=== PATIENT | male | born 1940 | race Caucasian/White ===

== ENCOUNTER 2017-05-11 08:50 | Inpatient (IN) ==
[~2017-05-11 08:50] MED LIST: cefOXitin 1,000 MG in SYRINGE 1 EACH IV ONE
[2017-05-11] MEDS ORDERED: ALBUTEROL/IPRATROPIUM 3 ML NEB RESP TX ONE ×3 (09:53→15:30)
[2017-05-11 10:03] LABS: Basophils # 0.1 10*3/uL (0.0-0.2); Basophils % 0.7 % (0.0-0.8); Eosinophils # 0.2 10*3/uL (0.0-0.87); Hematocrit 34.3 VOL% (42.0-52.0); Hemoglobin 10.8 GM/DL (14.0-18.0); Immature Granulocytes % 0.7 %; Immature Granulocytes Absolute 0.05 #; Lymphocytes % 12.7 % (21.2-54.2); Mean Corpuscular HGB Conc 31.5 GM/DL (32-36); Mean Corpuscular Hemoglobin 27 PG (27-34); Mean Corpuscular Volume 84.5 FL (87-102); Mean Platelet Volume 9.1 FL (9.6-12.0); Monocytes # 0.6 10*3/uL (0.11-0.8); Monocytes % 7.4 % (1.7-12.7); Neutrophils # 5.8 10*3/uL (1.4-7.4); Neutrophils % 76.5 % (38.7-73.9); Platelet Count 155 T/CUMM (130-400); Red Blood Count 4.06 MC/CUMM (3.8-5.5); Red Cell Distribution Width 17.1 % (9.3-17.3); White Blood Count 7.6 T/CUMM (4-12)
[2017-05-11 10:10] LABS: PT Patient Result 10.1 SECS
[2017-05-11 10:25] LABS: Calcium 8.6 MG/DL (8.5-10.1); Osmolality,Calculated 283.3 MOS/KG (273-304); Potassium 4.8 MMOL/L (3.5-5.1)
[2017-05-11] MEDS ORDERED: LACTATED RINGERS 1,000 ML IV SCH (12:00)
[2017-05-11] MEDS ORDERED: FAMOTIDINE 20 MG TABLET PO ONE (12:09)
[2017-05-11] MEDS ORDERED: FAMOTIDINE 20 MG TABLET ONE (12:11)
[2017-05-11] MEDS ORDERED: BUPIVACAINE 0.25% 50 ML VIAL ONE (14:00)
[2017-05-11] MEDS ORDERED: ONDANSETRON 4 MG/2 ML VIAL IV PRN (14:45)
[2017-05-11] MEDS ORDERED: MORPHINE 2 MG/1 ML SYRINGE IV PRN (14:45)
[2017-05-11] MEDS ORDERED: ALBUTEROL/IPRATROPIUM 3 ML NEB RESP TX PRN (14:47)
[2017-05-11] MEDS ORDERED: SUGAMMADEX 200 MG/2 ML VIAL IV ONE (14:52)
[2017-05-11 15:07] LABS: Apearance,Urine Slightly Hazy (Clear); Bacteria,Urine Many /HPF (Few); Bilirubin,Urine Negative (Negative); Blood, Urine Small mg/dL (Negative); Glucose,Urine (UA) Negative (Negative); Ketones,Urine Negative (Negative); Mucus,Urine Occasional /LPF (Occasional); Nitrite,Urine Negative (Negative); Protein,Urine Negative; RBC,Urine 17 /HPF (0-4); Urine Color Yellow (Yellow); Urine Specific Gravity 1.011 (1.001-1.035); Urine Urobilinogen < 2.0 EU/DL (0.2-1.0); WBC,Urine 72 /HPF (0-6)
[2017-05-11] MEDS ORDERED: PROPOFOL 200 MG/20 ML VIAL IV ONE (15:19)
[2017-05-11] MEDS ORDERED: ACETAMINOPHEN 1,000 MG/100 ML VIAL IV ONE (15:20)
[2017-05-11] MEDS ORDERED: ROCURONIUM 100 MG/10 ML VIAL IV ONE (15:20)
[2017-05-11] MEDS ORDERED: SEVOFLURANE 1 UNIT/15 MINUTE INH ONE (15:20)
[2017-05-11] MEDS ORDERED: fentaNYL 100 MCG/2 ML VIAL ONE (15:20)
[2017-05-11] MEDS ORDERED: LACTATED RINGERS 1,000 ML IV ONE (15:20)
[2017-05-11] MEDS: CETIRIZINE 10 MG TABLET PO SCH (20:50)
[2017-05-11] MEDS: DEXTROSE 5% NACL 0.45% 1,000 ML IV SCH (20:55)
[2017-05-11] MEDS: ARFORMOTEROL 15 MCG/2 ML NEB RESP TX SCH (21:23)
[2017-05-12] MEDS: DEXTROSE 5% NACL 0.45% 1,000 ML IV SCH (04:52)
[2017-05-12] MEDS: ARFORMOTEROL 15 MCG/2 ML NEB RESP TX SCH ×2 (07:20→19:54)
[2017-05-12] MEDS: CETIRIZINE 10 MG TABLET PO SCH ×2 (09:35→20:20)
[2017-05-12] MEDS: ENOXAPARIN 40 MG/0.4 ML SYRINGE SUBCUT SCH (09:35)
[2017-05-12] MEDS: PANTOPRAZOLE 40 MG TABLET PO SCH (09:35)
[2017-05-12] MEDS: clonazePAM 0.5 MG TABLET PO SCH (09:36)
[2017-05-12] MEDS ORDERED: BUDESONIDE 0.5 MG/2 ML NEB RESP TX PRN (10:44)
[2017-05-12] MEDS: ALBUTEROL/IPRATROPIUM 3 ML NEB RESP TX SCH ×3 (11:20→19:54)
[2017-05-12] MEDS: CIPROFLOXACIN 500 MG TABLET PO SCH ×2 (11:53→20:20)
[2017-05-12] MEDS ORDERED: ALBUTEROL/IPRATROPIUM 3 ML NEB RESP TX SCH (13:00)
[2017-05-12] MEDS: ACYCLOVIR INJ 750 MG in SODIUM CHLORIDE 0.9% 250 ML IV SCH (18:59)
[2017-05-12] MEDS ORDERED: MELATONIN 3 MG TABLET PO SCH (21:00)
[2017-05-13] MEDS: ACYCLOVIR INJ 750 MG in SODIUM CHLORIDE 0.9% 250 ML IV SCH ×3 (03:07→11:40)
[2017-05-13 05:08] LABS: Basophils % 0.2 % (0.0-0.8); Eosinophils # 0.1 10*3/uL (0.0-0.87); Eosinophils % 2.7 % (0.00-10.9); Hematocrit 29.2 VOL% (42.0-52.0); Hemoglobin 9.2 GM/DL (14.0-18.0); Immature Granulocytes % 0.6 %; Immature Granulocytes Absolute 0.03 #; Lymphocytes # 0.5 10*3/uL (1.4-4.0); Lymphocytes % 10.3 % (21.2-54.2); Mean Corpuscular HGB Conc 31.5 GM/DL (32-36); Mean Corpuscular Hemoglobin 27 PG (27-34); Mean Corpuscular Volume 84.4 FL (87-102); Mean Platelet Volume 9.8 FL (9.6-12.0); Monocytes # 0.6 10*3/uL (0.11-0.8); Monocytes % 10.9 % (1.7-12.7); Neutrophils % 75.3 % (38.7-73.9); Platelet Count 112 T/CUMM (130-400); Red Blood Count 3.46 MC/CUMM (3.8-5.5); Red Cell Distribution Width 17.2 % (9.3-17.3); White Blood Count 5.3 T/CUMM (4-12)
[2017-05-13 05:43] LABS: Calcium 7.8 MG/DL (8.5-10.1); Osmolality,Calculated 283.1 MOS/KG (273-304); Potassium 4.2 MMOL/L (3.5-5.1)
[2017-05-13] MEDS: ARFORMOTEROL 15 MCG/2 ML NEB RESP TX SCH (07:50)
[2017-05-13] MEDS: ALBUTEROL/IPRATROPIUM 3 ML NEB RESP TX SCH ×2 (07:50→11:20)
[2017-05-13] MEDS: clonazePAM 0.5 MG TABLET PO SCH ×2 (09:32→09:45)
[2017-05-13] MEDS: ENOXAPARIN 40 MG/0.4 ML SYRINGE SUBCUT SCH ×2 (09:33→11:40)
[2017-05-13] MEDS: PANTOPRAZOLE 40 MG TABLET PO SCH (09:33)
[2017-05-13] MEDS: CIPROFLOXACIN 500 MG TABLET PO SCH (09:33)
[2017-05-13] MEDS: CETIRIZINE 10 MG TABLET PO SCH (09:33)
[2017-05-13 13:02] VITALS: BP 98/78
== END 2017-05-13 14:30 | disposition home health service (06) | DRG 330 ==
LOC: N.OR 08:50 → N.SDSINP 08:54 → N.3E 16:01 → N.CC 05-12 11:59
PROVIDERS: ADMIT Surgery; ATTEND Surgery

== ENCOUNTER 2019-02-22 16:38 | Inpatient (IN) ==
[2019-02-22] MEDS ORDERED: methylPREDNISolone SOD SUC 125 MG/2 ML VIAL IV STA (17:10)
[2019-02-22] MEDS ORDERED: SODIUM CHLORIDE 0.9% 500 ML IV STA (17:10)
[2019-02-22] MEDS ORDERED: ONDANSETRON 4 MG/2 ML VIAL IV STA (17:10)
[2019-02-22 17:22] LABS: Basophils % 0.1 % (0.0-0.8); Hematocrit 32.2 VOL% (42.0-52.0); Hemoglobin 10.2 GM/DL (14.0-18.0); Immature Granulocytes % 0.6 %; Immature Granulocytes Absolute 0.05 #; Lymphocytes # 0.8 10*3/uL (1.4-4.0); Lymphocytes % 9.4 % (21.2-54.2); Mean Corpuscular HGB Conc 31.7 GM/DL (32-36); Mean Corpuscular Volume 89.2 FL (87-102); Mean Platelet Volume 8.3 FL (9.6-12.0); Monocytes % 1.6 % (1.7-12.7); Neutrophils % 88.3 % (38.7-73.9); Platelet Count 224 T/CUMM (130-400); Red Blood Count 3.61 MC/CUMM (3.8-5.5); Red Cell Distribution Width 16.6 % (9.3-17.3); White Blood Count 8.3 T/CUMM (4-12)
[2019-02-22 17:29] LABS: ABG Base Excess 1.8 MMOL/L (-2.5-2.5); ABG HCO3 25.9 MMOL/L (20-26); ABG Oxygen Saturation 91.7 % (95-100); ABG PCO2 36.1 MM HG (35-48); ABG PH 7.456 (7.35-7.45); ABG PO2 63.4 MM HG (80-95); ABG TCO2 22.9 MMOL/L (23-27)
[2019-02-22 17:30] LABS: INR 1.1; PT Patient Result 11.6 SECS (9.6-12.2)
[2019-02-22] MEDS ORDERED: ALBUTEROL NEB SOLN 5 MG/ML 20 ML/BOTTLE RESP TX SCH (17:30)
[2019-02-22 17:32] LABS: Albumin 2.3 G/DL (3.4-5.0); Bilirubin,Total 0.4 MG/DL (0.2-1.0); Calcium 8.5 MG/DL (8.5-10.1); Osmolality,Calculated 292.6 MOS/KG (273-304); Total Protein 5.4 G/DL (6.4-8.3)
[2019-02-22] MEDS ORDERED: SODIUM CHLORIDE 0.9% 1,900 ML IV ONE (18:06)
[2019-02-22] MEDS ORDERED: LEVOFLOXACIN INJ 750 MG in PREMIX 1 EACH IV STA (18:07)
[2019-02-22] MEDS ORDERED: ONDANSETRON 4 MG/2 ML VIAL IV PRN (18:20)
[2019-02-22] MEDS ORDERED: ACETAMINOPHEN 325 MG TABLET PO PRN (18:20)
[2019-02-22 18:39] LABS: Band Neutrophils 5 % (0-10); Lymphocytes 9 % (20-55); Metamyelocytes 4 %; Segmented Neutrophils 82 % (50-85); Total Cells Counted 100
[2019-02-22 18:40] LABS: Hypochromasia 1+; Platelet Estimate Normal
[2019-02-22 18:41] LABS: Polychromasia 1+
[2019-02-22 18:42] LABS: Anisocytosis 2+; Ovalocytes 1+; Poikilocytosis 1+; Schistocytes Few
[2019-02-22 19:03] LABS: INR 1.1; PT Patient Result 11.6 SECS (9.6-12.2); Partial Thromboplastin Time 23.5 SECS (20.8-36.0)
[2019-02-22 19:10] LABS: Apearance,Urine CLEAR (Clear); Bilirubin,Urine Negative (Negative); Blood, Urine Negative (Negative); Glucose,Urine (UA) Negative (Negative); Ketones,Urine Negative (Negative); Mucus,Urine Occasional /LPF (Occasional); Nitrite,Urine Negative (Negative); Protein,Urine Negative; RBC,Urine 8 /HPF (0-4); Squamous Epithelial Cell,Urine Occasional /HPF (0-10); Urine Color Yellow (Yellow); Urine Specific Gravity 1.015 (1.001-1.035); WBC,Urine <1 /HPF (0-6)
[2019-02-22] MEDS ORDERED: IPRATROPIUM/ALBUTEROL INHALER INH SCH (21:00)
[2019-02-22] MEDS ORDERED: BUDESONIDE 0.5 MG/2 ML NEB RESP TX SCH (21:00)
[2019-02-22] MEDS: MELATONIN 3 MG TABLET PO SCH (21:58)
[2019-02-22] MEDS: ENOXAPARIN 40 MG/0.4 ML SYRINGE SUBCUT SCH (21:58)
[2019-02-22] MEDS: MONTELUKAST 10 MG TABLET PO SCH (21:58)
[2019-02-22] MEDS: clonazePAM 0.5 MG TABLET PO SCH (21:58)
[2019-02-22] MEDS: VANCOMYCIN INJ 1,000 MG in SODIUM CHLORIDE 0.9% 250 ML IV SCH (22:00)
[2019-02-22] MEDS: traZODone 50 MG TABLET PO SCH (22:01)
[2019-02-22] MEDS: ARFORMOTEROL 15 MCG/2 ML NEB RESP TX SCH (23:23)
[2019-02-22] MEDS: ALBUTEROL/IPRATROPIUM 3 ML NEB RESP TX SCH (23:23)
[2019-02-23 05:00] LABS: Basophils % 0.1 % (0.0-0.8); Hematocrit 27.8 VOL% (42.0-52.0); Hemoglobin 8.8 GM/DL (14.0-18.0); Immature Granulocytes % 0.3 %; Immature Granulocytes Absolute 0.02 #; Lymphocytes # 0.2 10*3/uL (1.4-4.0); Lymphocytes % 3.1 % (21.2-54.2); Mean Corpuscular HGB Conc 31.7 GM/DL (32-36); Mean Corpuscular Volume 87.7 FL (87-102); Mean Platelet Volume 9.7 FL (9.6-12.0); Monocytes % 0.6 % (1.7-12.7); Neutrophils % 95.9 % (38.7-73.9); Platelet Count 180 T/CUMM (130-400); Red Blood Count 3.17 MC/CUMM (3.8-5.5); Red Cell Distribution Width 16.6 % (9.3-17.3); White Blood Count 6.7 T/CUMM (4-12)
[2019-02-23 05:30] LABS: Anisocytosis 1+; Band Neutrophils 6 % (0-10); Hypochromasia 1+; Lymphocytes 4 % (20-55); Microcytosis 1+; Ovalocytes Slight; Segmented Neutrophils 89 % (50-85); Total Cells Counted 100
[2019-02-23 05:31] LABS: Platelet Estimate Adequate
[2019-02-23 05:35] LABS: Albumin 2.1 G/DL (3.4-5.0); Bilirubin,Total 0.5 MG/DL (0.2-1.0); Calcium 8.8 MG/DL (8.5-10.1); Osmolality,Calculated 296.6 MOS/KG (273-304); Total Protein 5.8 G/DL (6.4-8.3)
[2019-02-23] MEDS: ALBUTEROL/IPRATROPIUM 3 ML NEB RESP TX SCH ×3 (07:40→19:38)
[2019-02-23] MEDS: ARFORMOTEROL 15 MCG/2 ML NEB RESP TX SCH ×2 (07:40→19:38)
[2019-02-23] MEDS: BUDESONIDE 0.5 MG/2 ML NEB RESP TX SCH ×2 (07:40→19:38)
[2019-02-23] MEDS: VANCOMYCIN INJ 1,000 MG in SODIUM CHLORIDE 0.9% 250 ML IV SCH ×2 (09:07→21:02)
[2019-02-23] MEDS: PANTOPRAZOLE 40 MG TABLET PO SCH (09:08)
[2019-02-23] MEDS: MULTIVITAMIN (CENTRUM) TABLET PO SCH (09:08)
[2019-02-23] MEDS: CETIRIZINE 10 MG TABLET PO SCH (09:08)
[2019-02-23] MEDS: clonazePAM 0.5 MG TABLET PO SCH (21:01)
[2019-02-23] MEDS: traZODone 50 MG TABLET PO SCH (21:01)
[2019-02-23] MEDS: ENOXAPARIN 40 MG/0.4 ML SYRINGE SUBCUT SCH (21:01)
[2019-02-23] MEDS: MELATONIN 3 MG TABLET PO SCH (21:01)
[2019-02-23] MEDS: MONTELUKAST 10 MG TABLET PO SCH (21:13)
[2019-02-23] MEDS: LEVOFLOXACIN INJ 750 MG in PREMIX 1 EACH IV SCH (22:27)
[2019-02-24] MEDS: ALBUTEROL/IPRATROPIUM 3 ML NEB RESP TX SCH ×4 (00:33→20:17)
[2019-02-24] MEDS: BUDESONIDE 0.5 MG/2 ML NEB RESP TX SCH ×2 (07:32→20:17)
[2019-02-24] MEDS: ARFORMOTEROL 15 MCG/2 ML NEB RESP TX SCH ×2 (07:32→20:17)
[2019-02-24] MEDS: MULTIVITAMIN (CENTRUM) TABLET PO SCH (08:34)
[2019-02-24] MEDS: VANCOMYCIN INJ 1,000 MG in SODIUM CHLORIDE 0.9% 250 ML IV SCH ×2 (08:34→20:34)
[2019-02-24] MEDS: CETIRIZINE 10 MG TABLET PO SCH (08:34)
[2019-02-24] MEDS: PANTOPRAZOLE 40 MG TABLET PO SCH (08:34)
[2019-02-24] MEDS: CHOLECALCIFEROL 1,000 UNIT TABLET PO SCH (11:45)
[2019-02-24] MEDS: CEFEPIME 1,000 MG in SODIUM CHLORIDE 0.9% 100 ML IV SCH ×3 (12:49→23:30)
[2019-02-24] MEDS: SODIUM CHLORIDE 0.45% 1,000 ML IV SCH (12:49)
[2019-02-24] MEDS: DORNASE ALFA 2.5 MG/2.5 ML VIAL RESP TX SCH ×2 (13:19→20:17)
[2019-02-24] MEDS: traZODone 50 MG TABLET PO SCH (20:34)
[2019-02-24] MEDS: ENOXAPARIN 40 MG/0.4 ML SYRINGE SUBCUT SCH (20:34)
[2019-02-24] MEDS: clonazePAM 0.5 MG TABLET PO SCH (20:34)
[2019-02-24] MEDS: MONTELUKAST 10 MG TABLET PO SCH (20:34)
[2019-02-24] MEDS: MELATONIN 3 MG TABLET PO SCH (20:34)
[2019-02-24] MEDS: LEVOFLOXACIN INJ 750 MG in PREMIX 1 EACH IV SCH (21:42)
[2019-02-25] MEDS: ALBUTEROL/IPRATROPIUM 3 ML NEB RESP TX SCH ×4 (00:53→19:16)
[2019-02-25] MEDS: CEFEPIME 1,000 MG in SODIUM CHLORIDE 0.9% 100 ML IV SCH ×4 (05:10→23:36)
[2019-02-25 05:14] LABS: Hematocrit 26.7 VOL% (42.0-52.0); Hemoglobin 8.5 GM/DL (14.0-18.0); Immature Granulocytes % 1.1 %; Immature Granulocytes Absolute 0.05 #; Lymphocytes # 0.5 10*3/uL (1.4-4.0); Lymphocytes % 10.9 % (21.2-54.2); Mean Corpuscular HGB Conc 31.8 GM/DL (32-36); Mean Corpuscular Volume 87.3 FL (87-102); Mean Platelet Volume 9.5 FL (9.6-12.0); Monocytes % 1.5 % (1.7-12.7); Neutrophils % 86.5 % (38.7-73.9); Platelet Count 152 T/CUMM (130-400); Red Blood Count 3.06 MC/CUMM (3.8-5.5); Red Cell Distribution Width 16.1 % (9.3-17.3); White Blood Count 4.7 T/CUMM (4-12)
[2019-02-25 05:44] LABS: Calcium 8.6 MG/DL (8.5-10.1); Osmolality,Calculated 282.4 MOS/KG (273-304)
[2019-02-25] MEDS: BUDESONIDE 0.5 MG/2 ML NEB RESP TX SCH ×2 (07:19→19:17)
[2019-02-25] MEDS: ARFORMOTEROL 15 MCG/2 ML NEB RESP TX SCH ×2 (07:19→19:16)
[2019-02-25] MEDS: DORNASE ALFA 2.5 MG/2.5 ML VIAL RESP TX SCH ×2 (07:20→19:17)
[2019-02-25] MEDS ORDERED: POTASSIUM CHLORIDE 20 MEQ TABLET PO ONE (07:56)
[2019-02-25] MEDS: VANCOMYCIN INJ 1,000 MG in SODIUM CHLORIDE 0.9% 250 ML IV SCH ×2 (08:45→20:14)
[2019-02-25] MEDS: PANTOPRAZOLE 40 MG TABLET PO SCH (08:46)
[2019-02-25] MEDS: CHOLECALCIFEROL 1,000 UNIT TABLET PO SCH (08:46)
[2019-02-25] MEDS: CETIRIZINE 10 MG TABLET PO SCH (08:46)
[2019-02-25] MEDS: SODIUM CHLORIDE 0.45% 1,000 ML IV SCH (08:46)
[2019-02-25] MEDS: MULTIVITAMIN (CENTRUM) TABLET PO SCH (08:46)
[2019-02-25] MEDS: clonazePAM 0.5 MG TABLET PO SCH (20:07)
[2019-02-25] MEDS: MELATONIN 3 MG TABLET PO SCH (20:07)
[2019-02-25] MEDS: traZODone 50 MG TABLET PO SCH (20:07)
[2019-02-25] MEDS: MONTELUKAST 10 MG TABLET PO SCH (20:08)
[2019-02-25] MEDS: ENOXAPARIN 40 MG/0.4 ML SYRINGE SUBCUT SCH (20:08)
[2019-02-25] MEDS: LEVOFLOXACIN INJ 750 MG in PREMIX 1 EACH IV SCH (21:54)
[2019-02-26] MEDS: ALBUTEROL/IPRATROPIUM 3 ML NEB RESP TX SCH ×4 (01:24→19:58)
[2019-02-26 05:23] LABS: Eosinophils % 0.5 % (0.00-10.9); Hematocrit 25.9 VOL% (42.0-52.0); Hemoglobin 8.2 GM/DL (14.0-18.0); Immature Granulocytes Absolute 0.04 #; Lymphocytes # 0.6 10*3/uL (1.4-4.0); Lymphocytes % 14.4 % (21.2-54.2); Mean Corpuscular HGB Conc 31.7 GM/DL (32-36); Mean Corpuscular Volume 88.7 FL (87-102); Mean Platelet Volume 9.3 FL (9.6-12.0); Monocytes % 2.1 % (1.7-12.7); Platelet Count 147 T/CUMM (130-400); Red Blood Count 2.92 MC/CUMM (3.8-5.5); White Blood Count 3.8 T/CUMM (4-12)
[2019-02-26] MEDS: SODIUM CHLORIDE 0.45% 1,000 ML IV SCH ×2 (05:27→17:54)
[2019-02-26] MEDS: CEFEPIME 1,000 MG in SODIUM CHLORIDE 0.9% 100 ML IV SCH ×3 (05:27→17:50)
[2019-02-26 05:55] LABS: Microcytosis 1+; Platelet Estimate Normal
[2019-02-26 05:56] LABS: Anisocytosis Slight; Hypochromasia Slight; Ovalocytes 1+
[2019-02-26 05:57] LABS: Schistocytes Slight
[2019-02-26 06:01] LABS: Calcium 8.2 MG/DL (8.5-10.1); Osmolality,Calculated 279.5 MOS/KG (273-304)
[2019-02-26 06:07] LABS: % Iron Saturation 20.3 % (18-50); Ferritin 196.7 ng/ml (26-388)
[2019-02-26 06:13] LABS: Folate > 24.0 NG/ML (5.4-24.0); Vitamin B12 434 PG/ML (211-911)
[2019-02-26 06:23] LABS: Sedimentation Rate-Westergren 126 MM/HR (0-20)
[2019-02-26] MEDS: ARFORMOTEROL 15 MCG/2 ML NEB RESP TX SCH ×2 (07:36→19:58)
[2019-02-26] MEDS: DORNASE ALFA 2.5 MG/2.5 ML VIAL RESP TX SCH ×2 (07:37→20:14)
[2019-02-26] MEDS: BUDESONIDE 0.5 MG/2 ML NEB RESP TX SCH ×2 (07:37→20:08)
[2019-02-26] MEDS: CHOLECALCIFEROL 1,000 UNIT TABLET PO SCH (08:13)
[2019-02-26] MEDS: POTASSIUM CHLORIDE 20 MEQ TABLET PO SCH (08:14)
[2019-02-26] MEDS: VANCOMYCIN INJ 1,000 MG in SODIUM CHLORIDE 0.9% 250 ML IV SCH (08:14)
[2019-02-26] MEDS: MULTIVITAMIN (CENTRUM) TABLET PO SCH (08:14)
[2019-02-26] MEDS: PANTOPRAZOLE 40 MG TABLET PO SCH (08:14)
[2019-02-26] MEDS: CETIRIZINE 10 MG TABLET PO SCH (08:14)
[2019-02-26 08:48] LABS: Hemoglobin A1 (Alkaline) 97.2 % (96.5-98.5); Hemoglobin A2 (Alkaline) 2.8 % (1.5-3.5)
[2019-02-26] MEDS: clonazePAM 0.5 MG TABLET PO SCH (21:31)
[2019-02-26] MEDS: traZODone 50 MG TABLET PO SCH (21:31)
[2019-02-26] MEDS: MELATONIN 3 MG TABLET PO SCH (21:32)
[2019-02-26] MEDS: MONTELUKAST 10 MG TABLET PO SCH (21:32)
[2019-02-26] MEDS: LEVOFLOXACIN INJ 750 MG in PREMIX 1 EACH IV SCH (21:32)
[2019-02-26] MEDS: ENOXAPARIN 40 MG/0.4 ML SYRINGE SUBCUT SCH (22:23)
[2019-02-27] MEDS: CEFEPIME 1,000 MG in SODIUM CHLORIDE 0.9% 100 ML IV SCH ×4 (00:41→17:46)
[2019-02-27] MEDS: ALBUTEROL/IPRATROPIUM 3 ML NEB RESP TX SCH ×4 (02:21→19:20)
[2019-02-27 06:07] LABS: Basophils % 0.2 % (0.0-0.8); Eosinophils # 0.1 10*3/uL (0.0-0.87); Eosinophils % 1.5 % (0.00-10.9); Hematocrit 24.2 VOL% (42.0-52.0); Hemoglobin 7.6 GM/DL (14.0-18.0); Immature Granulocytes % 3.2 %; Immature Granulocytes Absolute 0.19 #; Lymphocytes # 0.6 10*3/uL (1.4-4.0); Lymphocytes % 9.3 % (21.2-54.2); Mean Corpuscular HGB Conc 31.4 GM/DL (32-36); Mean Corpuscular Volume 88.6 FL (87-102); Mean Platelet Volume 9.3 FL (9.6-12.0); Monocytes % 2.8 % (1.7-12.7); Platelet Count 130 T/CUMM (130-400); Red Blood Count 2.73 MC/CUMM (3.8-5.5); Red Cell Distribution Width 15.8 % (9.3-17.3)
[2019-02-27 06:48] LABS: Albumin 1.8 G/DL (3.4-5.0); Bilirubin,Total 1.3 MG/DL (0.2-1.0); Calcium 7.8 MG/DL (8.5-10.1); Osmolality,Calculated 279.5 MOS/KG (273-304); Total Protein 5.3 G/DL (6.4-8.3)
[2019-02-27] MEDS ORDERED: SODIUM CHLORIDE 0.9% 1,000 ML IV PRN ×2 (06:56→07:29)
[2019-02-27] MEDS: ARFORMOTEROL 15 MCG/2 ML NEB RESP TX SCH ×2 (07:10→19:20)
[2019-02-27] MEDS: BUDESONIDE 0.5 MG/2 ML NEB RESP TX SCH ×2 (07:10→19:20)
[2019-02-27] MEDS: DORNASE ALFA 2.5 MG/2.5 ML VIAL RESP TX SCH ×2 (07:10→19:20)
[2019-02-27] MEDS: CHOLECALCIFEROL 1,000 UNIT TABLET PO SCH (08:18)
[2019-02-27] MEDS: POTASSIUM CHLORIDE 20 MEQ TABLET PO SCH ×2 (08:18→08:21)
[2019-02-27] MEDS: MULTIVITAMIN (CENTRUM) TABLET PO SCH (08:18)
[2019-02-27] MEDS: PANTOPRAZOLE 40 MG TABLET PO SCH (08:18)
[2019-02-27] MEDS: CETIRIZINE 10 MG TABLET PO SCH (08:18)
[2019-02-27] MEDS ORDERED: NICOTINE 21 MG/24 HR PATCH TRANSDERM SCH (09:00)
[2019-02-27] MEDS ORDERED: BISACODYL 10 MG SUPP RECTAL ONE (14:40)
[2019-02-27] MEDS ORDERED: MAGNESIUM HYDROXIDE SUSP 30 ML UDCUP PO ONE (14:40)
[2019-02-27] MEDS ORDERED: POLYETHYLENE GLYCOL POWDER 17 GM PACK PO ONE (14:41)
[2019-02-27] MEDS ORDERED: LEVOFLOXACIN 500 MG TABLET PO ONE (14:42)
[2019-02-27 16:17] LABS: Hematocrit 30.5 VOL% (42.0-52.0); Hemoglobin 9.9 GM/DL (14.0-18.0)
[2019-02-27] MEDS: ENOXAPARIN 40 MG/0.4 ML SYRINGE SUBCUT SCH (20:14)
[2019-02-27] MEDS: clonazePAM 0.5 MG TABLET PO SCH (20:16)
[2019-02-27] MEDS: MELATONIN 3 MG TABLET PO SCH (20:16)
[2019-02-27] MEDS: traZODone 50 MG TABLET PO SCH (20:16)
[2019-02-27] MEDS: LEVOFLOXACIN INJ 750 MG in PREMIX 1 EACH IV SCH (20:17)
[2019-02-27] MEDS: MONTELUKAST 10 MG TABLET PO SCH (20:24)
[2019-02-28] MEDS: ALBUTEROL/IPRATROPIUM 3 ML NEB RESP TX SCH ×2 (00:10→07:58)
[2019-02-28] MEDS: CEFEPIME 1,000 MG in SODIUM CHLORIDE 0.9% 100 ML IV SCH ×2 (00:37→05:40)
[2019-02-28] MEDS: BUDESONIDE 0.5 MG/2 ML NEB RESP TX SCH (08:03)
[2019-02-28] MEDS: ARFORMOTEROL 15 MCG/2 ML NEB RESP TX SCH (08:03)
[2019-02-28] MEDS: DORNASE ALFA 2.5 MG/2.5 ML VIAL RESP TX SCH (08:03)
[2019-02-28 08:26] VITALS: BP 104/54
== END 2019-02-28 08:19 | disposition swing bed (61) | DRG 194 ==
LOC: EDUNIT# → EDBD → N.ED 16:38 → N.EDINP 18:20 → N.4E 19:09
PROVIDERS: ADMIT Hospitalist; ATTEND Hospitalist

== ENCOUNTER 2019-03-26 17:50 | Inpatient (IN) ==
[2019-03-26 18:34] LABS: Basophils # 0.1 10*3/uL (0.0-0.2); Basophils % 0.3 % (0.0-0.8); Eosinophils # 0.1 10*3/uL (0.0-0.87); Eosinophils % 0.3 % (0.00-10.9); Hematocrit 40.8 VOL% (42.0-52.0); Hemoglobin 12.9 GM/DL (14.0-18.0); Immature Granulocytes % 2.2 %; Lymphocytes # 1.1 10*3/uL (1.4-4.0); Lymphocytes % 4.1 % (21.2-54.2); Mean Corpuscular HGB Conc 31.6 GM/DL (32-36); Mean Corpuscular Volume 93.4 FL (87-102); Mean Platelet Volume 9.1 FL (9.6-12.0); Monocytes % 5.7 % (1.7-12.7); Neutrophils % 87.4 % (38.7-73.9); Platelet Count 316 T/CUMM (130-400); Red Blood Count 4.37 MC/CUMM (3.8-5.5); Red Cell Distribution Width 19.1 % (9.3-17.3); White Blood Count 27.2 T/CUMM (4-12)
[2019-03-26 18:41] LABS: PT Patient Result 10.7 SECS (9.6-12.2); Partial Thromboplastin Time 25.7 SECS (20.8-36.0)
[2019-03-26 18:50] LABS: Albumin 3.5 G/DL (3.4-5.0); Bilirubin,Total 0.6 MG/DL (0.2-1.0); Calcium 8.8 MG/DL (8.5-10.1); Osmolality,Calculated 282.5 MOS/KG (273-304); Total Protein 7.8 G/DL (6.4-8.3)
[2019-03-26 18:53] LABS: Lymphocytes 3 % (20-55); Segmented Neutrophils 92 % (50-85); Total Cells Counted 100
[2019-03-26 18:54] LABS: Hypochromasia Slight; Microcytosis Slight; Ovalocytes Few; Platelet Estimate Normal
[2019-03-26 18:55] LABS: Tear Drop Cells Few
[2019-03-26] MEDS ORDERED: LEVOFLOXACIN INJ 750 MG in PREMIX 1 EACH IV STA (20:46)
[2019-03-26 21:44] LABS: Apearance,Urine CLEAR (Clear); Bilirubin,Urine Negative (Negative); Blood, Urine Negative (Negative); Glucose,Urine (UA) Negative (Negative); Ketones,Urine Negative (Negative); Mucus,Urine Occasional /LPF (Occasional); Nitrite,Urine Negative (Negative); Protein,Urine Negative; RBC,Urine 1 /HPF (0-4); Urine Color Yellow (Yellow); Urine Specific Gravity 1.038 (1.001-1.035); Urine Urobilinogen < 2.0 EU/DL (0.2-1.0); WBC,Urine <1 /HPF (0-6)
[2019-03-26] MEDS ORDERED: traZODone 50 MG TABLET PO PRN (23:09)
[2019-03-26] MEDS ORDERED: ENOXAPARIN 80 MG/0.8 ML SYRINGE SUBCUT SCH (23:09)
[2019-03-27] MEDS: MEROPENEM 500 MG in SODIUM CHLORIDE 0.9% 100 ML IV SCH ×4 (00:33→19:10)
[2019-03-27] MEDS: ARFORMOTEROL 15 MCG/2 ML NEB RESP TX SCH ×3 (00:38→20:14)
[2019-03-27] MEDS: BUDESONIDE 0.5 MG/2 ML NEB RESP TX SCH ×3 (00:38→20:14)
[2019-03-27] MEDS: ALBUTEROL/IPRATROPIUM 3 ML NEB RESP TX SCH ×6 (00:38→20:14)
[2019-03-27] MEDS ORDERED: VANCOMYCIN INJ 1,000 MG in SODIUM CHLORIDE 0.9% 250 ML IV SCH (01:00)
[2019-03-27 03:50] LABS: Basophils % 0.1 % (0.0-0.8); Eosinophils # 0.1 10*3/uL (0.0-0.87); Eosinophils % 0.5 % (0.00-10.9); Hematocrit 31.7 VOL% (42.0-52.0); Hemoglobin 10.1 GM/DL (14.0-18.0); Immature Granulocytes % 0.9 %; Immature Granulocytes Absolute 0.13 #; Lymphocytes # 0.8 10*3/uL (1.4-4.0); Lymphocytes % 5.4 % (21.2-54.2); Mean Corpuscular HGB Conc 31.9 GM/DL (32-36); Mean Platelet Volume 9.6 FL (9.6-12.0); Monocytes % 5.3 % (1.7-12.7); Neutrophils % 87.8 % (38.7-73.9); Platelet Count 171 T/CUMM (130-400); Red Blood Count 3.41 MC/CUMM (3.8-5.5); Red Cell Distribution Width 18.6 % (9.3-17.3); White Blood Count 14.7 T/CUMM (4-12)
[2019-03-27] MEDS ORDERED: MAGNESIUM SULF RIDER 4 GM in PREMIX 1 EACH IV PRN (06:56)
[2019-03-27] MEDS ORDERED: MAGNESIUM SULF RIDER 2 GM in PREMIX 1 EACH IV PRN (06:56)
[2019-03-27] MEDS ORDERED: POTASSIUM CHLORIDE RIDER 10 MEQ in PREMIX 1 EACH IV PRN (06:56)
[2019-03-27] MEDS: FUROSEMIDE 20 MG TABLET PO SCH ×2 (09:28→21:14)
[2019-03-27] MEDS: CETIRIZINE 10 MG TABLET PO SCH (09:28)
[2019-03-27] MEDS: PANTOPRAZOLE 40 MG TABLET PO SCH (09:28)
[2019-03-27] MEDS: APIXABAN 5 MG TABLET PO SCH ×2 (12:36→21:14)
[2019-03-27] MEDS: clonazePAM 0.5 MG TABLET PO SCH (21:14)
[2019-03-27] MEDS: MELATONIN 3 MG TABLET PO SCH (21:14)
[2019-03-27] MEDS: traZODone 50 MG TABLET PO SCH (21:18)
[2019-03-27] MEDS: LEVOFLOXACIN INJ 750 MG in PREMIX 1 EACH IV SCH (22:38)
[2019-03-28] MEDS: ALBUTEROL/IPRATROPIUM 3 ML NEB RESP TX SCH ×7 (00:04→23:28)
[2019-03-28] MEDS: MEROPENEM 500 MG in SODIUM CHLORIDE 0.9% 100 ML IV SCH ×4 (00:45→19:31)
[2019-03-28 06:58] LABS: Basophils % 0.1 % (0.0-0.8); Eosinophils # 0.1 10*3/uL (0.0-0.87); Hematocrit 30.4 VOL% (42.0-52.0); Hemoglobin 9.6 GM/DL (14.0-18.0); Immature Granulocytes Absolute 0.07 #; Lymphocytes # 0.4 10*3/uL (1.4-4.0); Lymphocytes % 5.9 % (21.2-54.2); Mean Corpuscular HGB Conc 31.6 GM/DL (32-36); Mean Corpuscular Volume 94.1 FL (87-102); Mean Platelet Volume 10.5 FL (9.6-12.0); Monocytes % 4.8 % (1.7-12.7); Neutrophils % 87.2 % (38.7-73.9); Red Blood Count 3.23 MC/CUMM (3.8-5.5); Red Cell Distribution Width 18.8 % (9.3-17.3); White Blood Count 7.3 T/CUMM (4-12)
[2019-03-28 07:02] LABS: Platelet Count 133 T/CUMM (130-400)
[2019-03-28] MEDS: BUDESONIDE 0.5 MG/2 ML NEB RESP TX SCH ×2 (07:06→19:08)
[2019-03-28] MEDS: ARFORMOTEROL 15 MCG/2 ML NEB RESP TX SCH ×2 (07:06→19:08)
[2019-03-28 07:18] LABS: Hypochromasia 1+; Ovalocytes Slight; Platelet Estimate Normal
[2019-03-28 07:25] LABS: Alanine Aminotransferase 11 U/L (16-61); Albumin 2.1 G/DL (3.4-5.0); Alkaline Phosphatase 62 U/L (45-117); Aspartate Amino Transferase 18 U/L (0-37); Bilirubin,Total < 0.39 MG/DL (0.2-1.0); Blood Urea Nitrogen 19 MG/DL (7-18); Calcium 8.4 MG/DL (8.5-10.1); Estimated Glom Filtration Rate 73 ML/MIN; Glucose 93 MG/DL (74-106); Osmolality,Calculated 280.4 MOS/KG (273-304); Total Protein 5.8 G/DL (6.4-8.3)
[2019-03-28] MEDS: APIXABAN 5 MG TABLET PO SCH ×2 (09:34→21:37)
[2019-03-28] MEDS: FUROSEMIDE 20 MG TABLET PO SCH (09:34)
[2019-03-28] MEDS: CETIRIZINE 10 MG TABLET PO SCH (09:35)
[2019-03-28] MEDS: clonazePAM 0.5 MG TABLET PO SCH ×2 (09:35→21:37)
[2019-03-28] MEDS: PANTOPRAZOLE 40 MG TABLET PO SCH (09:35)
[2019-03-28] MEDS ORDERED: SODIUM CHLORIDE 0.9% 500 ML IV ONE (20:41)
[2019-03-28] MEDS ORDERED: ACETAMINOPHEN 325 MG TABLET PO PRN (20:42)
[2019-03-28] MEDS: MELATONIN 3 MG TABLET PO SCH (21:37)
[2019-03-28] MEDS: traZODone 50 MG TABLET PO SCH (21:37)
[2019-03-28] MEDS: LEVOFLOXACIN INJ 750 MG in PREMIX 1 EACH IV SCH (23:00)
[2019-03-29] MEDS: MEROPENEM 500 MG in SODIUM CHLORIDE 0.9% 100 ML IV SCH ×2 (00:53→06:33)
[2019-03-29] MEDS: ALBUTEROL/IPRATROPIUM 3 ML NEB RESP TX SCH ×3 (03:15→10:34)
[2019-03-29 05:34] LABS: Basophils % 0.2 % (0.0-0.8); Eosinophils # 0.1 10*3/uL (0.0-0.87); Eosinophils % 2.1 % (0.00-10.9); Hematocrit 25.4 VOL% (42.0-52.0); Hemoglobin 7.7 GM/DL (14.0-18.0); Immature Granulocytes % 1.2 %; Immature Granulocytes Absolute 0.07 #; Lymphocytes # 0.6 10*3/uL (1.4-4.0); Lymphocytes % 10.1 % (21.2-54.2); Mean Corpuscular HGB Conc 30.3 GM/DL (32-36); Mean Corpuscular Volume 96.6 FL (87-102); Monocytes % 4.9 % (1.7-12.7); Neutrophils % 81.5 % (38.7-73.9); Platelet Count 113 T/CUMM (130-400); Red Blood Count 2.63 MC/CUMM (3.8-5.5); Red Cell Distribution Width 18.6 % (9.3-17.3); White Blood Count 5.8 T/CUMM (4-12)
[2019-03-29 05:53] LABS: Albumin 1.9 G/DL (3.4-5.0); Bilirubin,Total 0.5 MG/DL (0.2-1.0); Calcium 7.6 MG/DL (8.5-10.1); Osmolality,Calculated 291.6 MOS/KG (273-304); Total Protein 5.4 G/DL (6.4-8.3)
[2019-03-29] MEDS: ARFORMOTEROL 15 MCG/2 ML NEB RESP TX SCH (07:27)
[2019-03-29] MEDS: BUDESONIDE 0.5 MG/2 ML NEB RESP TX SCH (07:27)
[2019-03-29] MEDS: PANTOPRAZOLE 40 MG TABLET PO SCH (09:46)
[2019-03-29] MEDS: CETIRIZINE 10 MG TABLET PO SCH (09:46)
[2019-03-29] MEDS: clonazePAM 0.5 MG TABLET PO SCH ×2 (09:46→09:48)
[2019-03-29] MEDS: APIXABAN 5 MG TABLET PO SCH (09:46)
[2019-03-29] MEDS ORDERED: HEPARIN LOCK FLUSH 500 UNIT/5 ML SYRINGE IV ONE (12:01)
[2019-03-29 12:23] VITALS: BP 114/65
== END 2019-03-29 12:20 | disposition home or self-care (01) | DRG 299 ==
LOC: N.ED 17:50 → N.EDINP 22:21 → N.4E 22:53
PROVIDERS: ADMIT Internal Medicine; ATTEND Internal Medicine